=== PATIENT | female | born 1970 | race Caucasian/White ===

== ENCOUNTER 2021-12-30 08:07 | Outpatient (CLI) | payer OTHER, SELFPAY ==
[2021-12-30 08:26] LABS: Basophils Percent Auto 0.9 % (0.0-3.0); Eosinophils Percent Auto 1.6 % (0.0-7.0); Hemoglobin* 13.1 gm/dL (12.0-16.0); Immature Granulocytes Pct Auto 0.2 %; Lymphocytes Percent Auto 31.3 % (20-44); Mean Corpuscular HGB Conc 34 gm/dL (32-36); Mean Corpuscular Hemoglobin 30 pg (26-34); Mean Corpuscular Volume 88 fL (80-100); Monocytes Percent Auto 8.1 % (0.0-11.0); Neutrophils Percent Auto 57.9 % (42.0-72.0); Platelet Count* 320 K/uL (140-440); RDW Coefficient of Variation % 12.1 % (11.5-15.5); Red Blood Count 4.42 m/uL (4.00-5.20); White Blood Count* 4.32 K/uL (4.50-11.00)
[2021-12-30 08:32] LABS: Slide Review Reflex No
[2021-12-30 14:18] LABS: Vitamin D 25 Hydroxy* 46 ng/mL (30-80)
[2021-12-30 14:50] LABS: Vitamin B12* 741 pg/mL (243-894)
== END 2021-12-30 08:08 | disposition home or self-care (01) ==
PROVIDERS: PCP Internal Medicine; Visit Provider Internal Medicine
DX: R07.9 Chest pain, unspecified (principal); D64.9 Anemia, unspecified
CPT/HCPCS: 82306; 82607; 85025

== ENCOUNTER 2022-01-01 12:48 | Outpatient (CLI) | payer OTHER, SELFPAY ==
--- NOTE | 2022-01-01 13:00 | CRLHL7_ITS ---
For Patients: As a result of the 21st Century Cures Act, medical imaging exams and procedure reports are released immediately into your electronic medical record. You may view this report before your referring provider. If you have questions, please contact your health care provider. INDICATION: Anterior chest pain, Hx benign cyst of RT breast COMPARISON: none TECHNIQUE: CT volumetric acquisition was performed of the thorax during intravenous infusion of 95 cc Isovue 320 nonionic intravenous contrast. Please note that all CT scans at this facility use dose modulation, iterative reconstruction, and/or weight-based dosing when appropriate to reduce radiation dose to as low as reasonably achievable. FINDINGS: The CT images are of acceptable quality and demonstrate normal uniform vascular enhancement within the pulmonary arteries. There are no suspicious filling defects which would indicate pulmonary thromboemboli. There is no evidence of pleural or pericardial fluid. The heart and thoracic aorta appear normal. There is no evidence of lymphadenopathy within the central mediastinum or within either axilla. On lung window settings, there is no evidence of pneumothorax. Biapical pleural parenchymal scarring noted. There is a 5 millimeter nodule within the right upper lobe, series 11, image 69. Incidental bone island within the T7 superior endplate posteriorly. Normal breast tissue. Upper abdomen normal. IMPRESSION: No evidence of pulmonary thromboembolism. 5 millimeter right upper lobe nodule. Suggest follow-up CT in 1 year. Please note that all CT scans at this facility use dose modulation, iterative reconstruction, and/or weight-based dosing when appropriate to reduce radiation dose to as low as reasonably achievable. Dictated by Arturo Coates MD @ 01/01/2022 3:32:16 PM (Electronically Signed)
== END 2022-01-01 12:49 | disposition home or self-care (01) ==
LOC: CT 12:49
PROVIDERS: PCP Internal Medicine; Visit Provider Internal Medicine
DX: R07.9 Chest pain, unspecified (principal); R91.8 Other nonspecific abnormal finding of lung field
CPT/HCPCS: 71260; Q9967

== ENCOUNTER 2023-03-15 15:46 | Outpatient (CLI) | payer OTHER, SELFPAY | END 2023-03-15 15:47 | disposition home or self-care (01) | PROVIDERS: PCP Internal Medicine; Visit Provider Internal Medicine | DX: R07.9 Chest pain, unspecified (principal); Z13.220 Encounter for screening for lipoid disorders; Z13.228 Encounter for screening for other metabolic disorders | CPT/HCPCS: 80053; 80061 ==

== ENCOUNTER 2023-12-05 08:32 | Outpatient (CLI) | payer OTHER, SELFPAY ==
--- NOTE | 2023-12-05 | CRLHL7_ITS ---
For Patients: As a result of the Century Cures Act, medical imaging exams and procedure reports are released immediately into your electronic medical record. You may view this report before your referring provider. If you have questions, please contact your health care provider. ULTRASOUND-GUIDED CYST ASPIRATION CLINICAL HISTORY: Painful cyst. COMPARISON STUDIES: 12/05/2023. TECHNIQUE: Real-time ultrasound with image documentation was used for targeting the breast lesion. Ultrasound-guided cyst aspiration performed with an 18-gauge needle. CONSENT and TIME OUT: The procedure, risks, and alternatives were explained to the patient and a consent was signed. [place] Protocol was followed including pre-procedure verification that relevant information/documentation was available, reviewed and properly matched to the patient; consent accurate and complete; and equipment and supplies available. Time Out was conducted just prior to starting procedure to verify the four required elements: patient identity, correct side/site marked (if applicable), procedure, relevant images/results properly labeled and displayed (if applicable). PROCEDURE: The patient was positioned supine on the ultrasound table. The breast was prepped with ChloraPrep. 3 cc of 1% lidocaine was injected for local anesthesia. Ultrasound-guided aspiration of 2 cc of serosanguineous fluid then performed. The fluid was discarded. No complications. LATERALITY: RIGHT breast. LESION: 5 x 4 x 7 millimeter cyst at 3 o`clock 4 cm from the nipple. IMPRESSION: Ultrasound-guided cyst aspiration RIGHT breast. ACR not applicable Dictated by Arturo Coates MD @ 12/05/2023 10:03:56 AM jj/Dictated by: Arturo Coates MD @ 12/05/2023 10:03:00 AM (Electronically Signed)
--- NOTE | 2023-12-05 08:45 | CRLHL7_ITS ---
For Patients: As a result of the Century Cures Act, medical imaging exams and procedure reports are released immediately into your electronic medical record. You may view this report before your referring provider. If you have questions, please contact your health care provider. DIGITAL DIAGNOSTIC BILATERAL MAMMOGRAM USING TOMOSYNTHESIS AND COMPUTER-AIDED DETECTION RIGHT BREAST ULTRASOUND CLINICAL HISTORY: RIGHT breast lump. COMPARISON: 05/19/2021, 05/13/2021. TECHNIQUE: Digital BILATERAL mammogram in four projections with computer-aided detection. Tomosynthesis was used in this interpretation. Real-time ultrasound imaging of RIGHT breast with imaging documentation. BREAST COMPOSITION: The breasts are extremely dense, which lowers the sensitivity of mammography. FINDINGS: 3D CC/MLO BILATERAL mammogram images submitted. No suspicious mass or architectural distortion. No adenopathy or suspicious calcifications. Targeted RIGHT breast ultrasound performed at 3 o`clock 4 cm from the nipple corresponding to the area of concern. In this location, there is a mildly complicated cyst containing a few internal echoes measuring 5 x 4 x 7 millimeters. No suspicious solid component. No internal vascularity. IMPRESSION: Benign cyst RIGHT breast 3 o`clock 4 cm from the nipple measuring 5 x 4 x 7 millimeters. No suspicious findings. RECOMMENDATIONS: Ultrasound-guided cyst aspiration will be performed subsequently. Results and recommendations were discussed with the patient BI-RADS Category 2: Benign A lay language report of this examination will be provided to the patient. Dictated by Arturo Coates MD @ 12/05/2023 9:57:48 AM jj/Dictated by: Arturo Coates MD @ 12/05/2023 9:57:00 AM (Electronically Signed)
--- NOTE | 2023-12-05 09:15 | CRLHL7_ITS ---
For Patients: As a result of the Cures Act, medical imaging exams and procedure reports are released immediately into your electronic medical record. You may view this report before your referring provider. If you have questions, please contact your health care provider. PLEASE SEE DIGITAL DIAGNOSTIC BILATERAL MAMMOGRAM PERFORMED SAME DAY CRL:[email or web address] hummel/Dictated by: Arturo Coates MD @ 12/05/2023 9:58:00 AM (Electronically Signed)
== END 2023-12-05 08:33 | disposition home or self-care (01) ==
LOC: MAMMO 08:33
PROVIDERS: PCP Internal Medicine; Visit Provider Obstetrics & Gynecology
DX: N63.10 Unspecified lump in the right breast, unspecified quadrant (principal); N60.01 Solitary cyst of right breast; R92.343 Mammographic extreme density, bilateral breasts
CPT/HCPCS: 19000; 76642; 76942; 77066; G0279

== ENCOUNTER 2024-05-24 16:12 | Outpatient (CLI) | payer OTHER, SELFPAY ==
[2024-05-27 00:31] LABS: HPV Source Cervix; HPV, High Risk by TMA Not Detected
== END 2024-05-24 16:13 | disposition home or self-care (01) ==
PROVIDERS: PCP Internal Medicine; Visit Provider Registered Nurse
DX: N92.0 Excessive and frequent menstruation with regular cycle (principal); Z12.4 Encounter for screening for malignant neoplasm of cervix; Z11.51 Encounter for screening for human papillomavirus (HPV)
CPT/HCPCS: 84443; 87624; 87625; 88141; 88142

== ENCOUNTER 2024-05-28 15:00 | Outpatient (CLI) | payer OTHER, SELFPAY ==
--- NOTE | 2024-05-28 15:00 | CRLHL7_ITS ---
For Patients: As a result of the Century Cures Act, medical imaging exams and procedure reports are released immediately into your electronic medical record. You may view this report before your referring provider. If you have questions, please contact your health care provider. INDICATION: Excessive and frequent menstruation COMPARISON: none TECHNIQUE: 2D jameson scale and color Doppler images were acquired of the pelvis using a transabdominal and transvaginal approach. FINDINGS: Left-sided partially exophytic fibroid is present anteriorly which measures 5.9 x 6.1 x 6.2 cm. Mid posterior intramural fibroid measures 1.5 x 1.3 x 2.0 cm. Uterus measures 10.1 cm in length by 6.0 cm in AP diameter by 6.9 cm in transverse dimension. Endometrium measures 12 millimeters. No endometrial fluid. Hyperechoic nodule within the endometrium measures 9 x 3 x 4 millimeters. This is located within the fundal region. Additional nodular structure within the lower uterine segment associated with the endometrium measuring 5 x 3 x 5 millimeters. The right ovary measures 2.9 x 2.2 x 2.1 cm in size and the left ovary measures 4.1 x 2.4 x 2.9 cm. The ovaries demonstrate normal arterial and venous blood flow on color Doppler analysis. There are no suspicious fluid collections within the cul-de-sac. Hypoechoic cyst within the left ovary measures 3.2 x 1.9 x 2.1 cm. No internal vascularity. IMPRESSION: Possible endometrial polyps measuring 5 millimeters and 9 millimeters. Endometrial thickness 12 millimeters. Uterine fibroids are present measuring up to 6.2 cm. Probable hemorrhagic cyst left ovary measuring 3.2 x 1.9 x 2.1 cm. Dictated by Arturo Coates MD @ 05/28/2024 7:51:30 PM (Electronically Signed)
== END 2024-05-28 15:01 | disposition home or self-care (01) ==
LOC: US 15:01
PROVIDERS: PCP Internal Medicine; Visit Provider Registered Nurse
DX: N92.0 Excessive and frequent menstruation with regular cycle (principal); D25.9 Leiomyoma of uterus, unspecified; R93.89 Abnormal findings on diagnostic imaging of other specified body structures
CPT/HCPCS: 76830; 76856